=== PATIENT | male | born 1990 | race Caucasian/White ===

== ENCOUNTER 2016-10-30 08:57 | Emergency (ER) | payer SELFPAY ==
[2016-10-30 09:06] VITALS: TEMP 98.8
[2016-10-30] MEDS ORDERED: KETOROLAC TROMETHAMINE 30 MG/ML SOL IV ONE (09:22)
[2016-10-30] MEDS ORDERED: PANTOPRAZOLE SODIUM 40 MG/10 ML PDS IV ONE (09:22)
[2016-10-30] MEDS ORDERED: ONDANSETRON HCL 4 MG/2 ML SOL IV ONE (09:22)
[2016-10-30] MEDS: SODIUM CHLORIDE 0.9% 1000ML 1,000 ML IV SCH ×2 (09:29→10:31)
[2016-10-30] MEDS ORDERED: KETOROLAC TROMETHAMINE 30 MG/ML SOL ONE (09:30)
[2016-10-30] MEDS ORDERED: PANTOPRAZOLE SODIUM 40 MG/10 ML PDS ONE (09:30)
[2016-10-30] MEDS ORDERED: ONDANSETRON HCL 4 MG/2 ML SOL ONE (09:30)
[2016-10-30 09:36] LABS: BASOPHILS % (AUTO) 1 % (0-3); EOSINOPHILS % (AUTO) 0 % (0-9); HEMATOCRIT 49 % (39-53); MEAN CORPUSCULAR HGB CONC 35.9 gm/dl (32.0-36.0); MEAN CORPUSCULAR VOLUME 84 fL (80-100); NEUTROPHILS % (AUTO) 82.1 % (37-80)
[2016-10-30] MEDS: SODIUM CHLORIDE 0.9% FLUSH 10 ML SOL IV PRN ×3 (09:45→09:47)
[2016-10-30 09:47] LABS: ALBUMIN 4.7 gm/dl (3.4-5.0); CALCIUM 9.6 mg/dl (8.5-10.1); POTASSIUM 3.8 mMol/L (3.5-5.1)
[2016-10-30] MEDS ORDERED: SODIUM CHLORIDE 0.9% 1000ML 500 ML IV SCH (13:00)
[2016-10-30 13:38] VITALS: BP 126/63; PULSE 94; RESP 18; O2SAT 98
== END 2016-10-30 13:40 | disposition home or self-care (01) | DRG 392 ==
LOC: ED 08:57
DX: K29.70 Gastritis, unspecified, without bleeding (principal)
CPT/HCPCS: 74020; 80053; 85025; 99285; J1885; J2405